=== PATIENT | female | born 1985 | race Caucasian/White ===

== ENCOUNTER 2018-12-04 05:39 | Inpatient (IN) | payer MEDICAID ==
[~2018-12-04] VITALS: Ht 147.3 cm; Wt 53.4 kg
[2018-12-04 05:42] VITALS: Ht 147.3 cm; Wt 53.4 kg
[2018-12-04] MEDS ORDERED: METHYLERGONOVINE 0.2 MG INJ IM PRN ×2 (06:00→09:00)
[2018-12-04] MEDS ORDERED: OXYTOCIN 30 UNITS/LR 500 ML IV PRN ×2 (06:00→09:00)
[2018-12-04] MEDS ORDERED: OXYTOCIN 30 UNITS/LR 500 ML IV SCH (06:00)
[2018-12-04] MEDS ORDERED: MISOPROSTOL 200 MCG TAB PR PRN ×2 (06:00→09:00)
[2018-12-04] MEDS ORDERED: CARBOPROST 250 MCG INJ IM PRN ×2 (06:00→09:00)
[2018-12-04] MEDS ORDERED: CEFAZOLIN 2 GM/50 ML (PMX) 50 ML IVPB SCH (06:00)
[2018-12-04 06:09] VITALS: BP 113/75; PULSE 68; RESP 16
[2018-12-04] MEDS ORDERED: morphine SULFATE/PF (10 MG/10 ML) INJ ONE (07:41)
[2018-12-04] MEDS ORDERED: OXYTOCIN 30 UNITS/LR 500 ML BAG IV ONE (07:41)
[2018-12-04] MEDS ORDERED: OXYTOCIN 10 UNIT INJ ONE (07:41)
[2018-12-04] MEDS ORDERED: ONDANSETRON 4 MG INJ ONE (07:41)
[2018-12-04] MEDS ORDERED: PHENYLephrine 10 MG INJ ONE (08:22)
[2018-12-04] MEDS ORDERED: METOCLOPRAMIDE 10 MG INJ ONE (08:24)
[2018-12-04] MEDS ORDERED: OXYCODONE/ACETAMINOPHEN (5/325) TAB PO PRN (09:00)
[2018-12-04] MEDS ORDERED: LANOLIN HPA 1 PKT TOP PRN (09:00)
[2018-12-04] MEDS ORDERED: NACL 0.9% 3 ML SYG IV SCH (09:00)
[2018-12-04] MEDS ORDERED: DIPHENHYDRAMINE 50 MG INJ IV PRN (09:00)
[2018-12-04] MEDS ORDERED: KETOROLAC 30 MG INJ IV PRN (09:00)
[2018-12-04] MEDS ORDERED: NALOXONE (0.4 MG/ML) INJ IV PRN (09:00)
[2018-12-04] MEDS ORDERED: morphine 2 MG INJ IV PRN (09:00)
[2018-12-04] MEDS: OXYTOCIN 30 UNITS/LR 500 ML IV SCH ×2 (09:06→13:14)
[2018-12-04] MEDS: IBUPROFEN 600 MG TAB PO SCH ×2 (12:00→18:00)
[2018-12-04 12:20] VITALS: BP 93/60; PULSE 72; RESP 18
[2018-12-04] MEDS: LACTATED RINGER'S 1,000 ML IV SCH ×3 (13:16→22:48)
[2018-12-04 13:20] VITALS: BP 94/56; PULSE 71; RESP 18
[2018-12-04 15:10] VITALS: BP 101/55; PULSE 75; RESP 16
[2018-12-04] MEDS: CEFAZOLIN 2 GM/50 ML (PMX) 50 ML IVPB SCH ×2 (16:10→22:39)
[2018-12-04 19:50] VITALS: BP 93/52; PULSE 74; RESP 18
[2018-12-05] VITALS: BP 105/63; PULSE 75; RESP 18
[2018-12-05 04:01] VITALS: BP 93/51; PULSE 68; RESP 18
[2018-12-05] MEDS: CEFAZOLIN 2 GM/50 ML (PMX) 50 ML IVPB SCH (05:40)
[2018-12-05] MEDS: LACTATED RINGER'S 1,000 ML IV SCH ×2 (05:44→13:44)
[2018-12-05] MEDS: IBUPROFEN 600 MG TAB PO SCH ×4 (06:00→17:22)
[2018-12-05 08:30] VITALS: BP 105/52; PULSE 70; RESP 18
[2018-12-05 16:24] VITALS: BP 100/62; PULSE 76; RESP 18
[2018-12-05 20:30] VITALS: BP 111/62; PULSE 76; RESP 19
[2018-12-06] MEDS: IBUPROFEN 600 MG TAB PO SCH ×5 (00:21→23:40)
[2018-12-06] MEDS: FERROUS SULFATE (EC) 325 MG TAB PO SCH ×3 (00:21→20:22)
[2018-12-06] MEDS: LACTATED RINGER'S 1,000 ML IV SCH (00:44)
[2018-12-06 04:30] VITALS: BP 107/63; PULSE 84; RESP 19
[2018-12-06 08:30] VITALS: BP 106/61; PULSE 62; RESP 18
[2018-12-06] MEDS ORDERED: BISACODYL 10 MG SUPP PR ONE (13:30)
[2018-12-06 16:26] VITALS: BP 105/62; PULSE 70; RESP 18
[2018-12-06] MEDS: OXYCODONE/ACETAMINOPHEN (5/325) TAB PO PRN (19:14)
[2018-12-06 20:10] VITALS: BP 122/79; PULSE 72; RESP 18
[2018-12-07 02:45] VITALS: BP 108/62; PULSE 70; RESP 18
[2018-12-07] MEDS: OXYCODONE/ACETAMINOPHEN (5/325) TAB PO PRN (06:23)
[2018-12-07] MEDS: IBUPROFEN 600 MG TAB PO SCH ×2 (06:23→12:27)
[2018-12-07 08:00] VITALS: BP 114/72; PULSE 79; RESP 16
[2018-12-07] MEDS: FERROUS SULFATE (EC) 325 MG TAB PO SCH (09:09)
== END 2018-12-07 13:13 | disposition home or self-care (01) | DRG 788 ==
LOC: L-D 05:39 → MS1 12:57 → PP1 12-06 17:15
PROVIDERS: ADMIT Obstetrics & Gynecology; ATTEND Obstetrics & Gynecology
PROC: 10D00Z1 Extraction of Products of Conception, Low, Open Approach (ICD-10-PCS; 2018-12-04)
PROC: 10907ZC Drainage of Amniotic Fluid, Therapeutic from Products of Conception, Via Natural or Artificial Opening (ICD-10-PCS; principal; 2018-12-04 07:30)
DX: O34.211 Maternal care for low transverse scar from previous cesarean delivery (principal); Z37.0 Single live birth; Z3A.39 39 weeks gestation of pregnancy
CPT/HCPCS: 85025; 85610; 85730; 86592; 86850; 86900; 86901; 87340; 99464; J0690; J1885; J2274; J2370; J2405; J2590; J2765; J7120